=== PATIENT | female | born 1975 | race Caucasian/White ===

== ENCOUNTER 2023-04-12 13:41 | Outpatient (CLI) | payer OTHER | END 2023-04-12 13:42 | disposition home or self-care (01) | LOC: CSHMRI 13:41 | PROVIDERS: ATTEND Surgery | DX: M47.27 Other spondylosis with radiculopathy, lumbosacral region (principal); M43.17 Spondylolisthesis, lumbosacral region; M51.17 Intervertebral disc disorders with radiculopathy, lumbosacral region; M48.07 Spinal stenosis, lumbosacral region | CPT/HCPCS: 72110; 72148 ==